=== PATIENT | male | born 1945 | race Caucasian/White ===

== ENCOUNTER → 2016-04-30 | Outpatient (CLI) | payer MEDICARE ==
[~2016-04-30] MED LIST: AML5T PO; AMLO25PO PO; ASPI-586; LSRT50T; METF500T4 PO; Metoprolol; NEBI5TAB8; SMV20T; TICA90TA PO
[2016-04-30 07:40] LABS: BASOPHILS % (AUTO) 1 % (0-2); EOSINOPHILS # (AUTO) 0.1 10^3uL; EOSINOPHILS % (AUTO) 1 % (0-4); LYMPHOCYTES # (AUTO) 1.6 X10^3; MEAN CORPUSCULAR HEMOGLOBIN 30.4 PG (26.0-34.0); MEAN CORPUSCULAR HGB CONC 35.1 g/dL (31.0-37.0); MEAN CORPUSCULAR VOLUME 87 FL (80-100); MEAN PLATELET VOLUME 10.2 FL (6.0-9.5); MONOCYTES # (AUTO) 0.6 X10^3; MONOCYTES % (AUTO) 10 % (3-11); NEUTROPHILS # (AUTO) 3.6 X10^3; NEUTROPHILS % (AUTO) 62 % (51-67); PLATELET COUNT 248 10^3uL (150-450); WHITE BLOOD COUNT 5.84 10^3uL (4.0-11.0)
[2016-04-30 08:53] LABS: ALBUMIN 4.4 g/dL (3.4-5.0); ANION GAP 17.4 MEQ/L (3-15); CALCULATED IONIZED CALCIUM 4.1 mg/dL (3.8-4.6); TOTAL PROTEIN 6.9 g/dL (6.4-8.5)
== END ==
LOC: LAB 07:24
PROVIDERS: ATTEND Internal Medicine
DX: Z00.00 Encounter for general adult medical examination without abnormal findings (principal); I10 Essential (primary) hypertension; E78.4 Other hyperlipidemia; R73.09 Other abnormal glucose; I25.10 Atherosclerotic heart disease of native coronary artery without angina pectoris; Z12.5 Encounter for screening for malignant neoplasm of prostate; K21.9 Gastro-esophageal reflux disease without esophagitis
CPT/HCPCS: 36415; 80053; 80061; 83036; 84443; 85025; G0103; 84153

== ENCOUNTER → 2016-05-19 | Outpatient (CLI) | payer MEDICARE | LOC: RAD 09:36 | PROVIDERS: ATTEND Internal Medicine | DX: Z13.6 Encounter for screening for cardiovascular disorders (principal) ==